=== PATIENT | male | born 1965 | race Caucasian/White ===

== ENCOUNTER 2019-06-28 04:52 | Emergency (ER) | payer BC ==
[~2019-06-28] VITALS: Ht 172.7 cm; Wt 81.7 kg
[~2019-06-28 04:52] MED LIST: CETI5 PO; CRUTCH2 USE; DOXY100 PO; EPIN.3I IM; HYDACE5; HYDACE5 PO; Multiple Vitam1 EAC1 PO; OTC ANTIHISTAMINE; OXYACE5T PO; PRED20 PO; Prozac20 MG PO
[2019-06-28 05:24] LABS: BASOPHILS ABSOLUTE AUTO 0.04 K/mm3 (0.00-0.23); BASOPHILS PERCENT AUTO 1 % (0-2); EOSINOPHILS ABSOLUTE AUTO 0.13 K/mm3 (0.00-0.68); EOSINOPHILS PERCENT AUTO 2 % (0-6); Hematocrit 43.6 % (37.0-53.0); Hemoglobin 14.8 g/dL (13.5-17.5); IMMATURE GRAN ABSOLUTE AUTO 0.02 K/mm3 (0.00-0.10); IMMATURE GRAN PERCENT AUTO 0 % (0-1); LYMPHOCYTES PERCENT AUTO 36 % (21-46); MONOCYTES ABSOLUTE AUTO 1.05 K/mm3 (0.16-1.47); MONOCYTES PERCENT AUTO 14 % (4-13); Mean Corpuscular HGB 30.2 pg (26.0-34.0); Mean Corpuscular HGB Conc 33.9 g/dL (31.5-36.5); Mean Corpuscular Volume 89 fL (80-100); Mean Platelet Volume 9.8 fL (9.1-12.4); NEUTROPHILS ABSOLUTE AUTO 3.49 K/mm3 (1.96-9.15); NEUTROPHILS PERCENT AUTO 48 % (41-73); Platelet Count 260 K/mm3 (150-400); RDW Coefficient Variation 12.3 % (11.7-14.2); RDW Standard Deviation 40.2 fL (35.1-46.3); White Blood Cell Count 7.33 K/mm3 (4.00-11.30)
[2019-06-28 05:43] LABS: Alanine Aminotransfer (ALT/SGP 70 U/L (12-78); Albumin, Blood 3.9 g/dL (3.4-5.0); Albumin/Globulin Ratio 1.1 (0.8-1.8); Alk Phos 77 U/L (50-136); Anion Gap 5 mmol/L (6-16); Aspartate Aminotrans (AST/SGOT 31 U/L (12-37); Bilirubin, Total 0.5 mg/dL (0.1-1.0); Blood Urea Nitrogen 21 mg/dL (8-24); Bun/Creatinine Ratio 24.2 (12.0-20.0); CO2, Blood 25 mmol/L (21-32); Calcium, Blood 8.7 mg/dL (8.5-10.1); Chloride, Blood 110 mmol/L (98-108); Creatinine, Blood 0.87 mg/dL (0.60-1.20); Globulin, Blood 3.6 g/dL (2.2-4.0); Glomerular Filtration Rate >60 (60-); Glucose, Blood 99 mg/dL (70-99); Potassium, Blood 3.8 mmol/L (3.5-5.5); Sodium, Blood 140 mmol/L (136-145); Total Protein, Blood 7.5 g/dL (6.4-8.2)
[2019-06-28] MEDS ORDERED: Percocet 5-3251 EACH PO (06:33)
[2019-06-28] MEDS ORDERED: ONDA4ODT SL (06:33)
[2019-06-28 06:51] LABS: Source, Urine Voided
[2019-06-28 06:54] LABS: Bilirubin, Urine Neg (Neg); Blood, Urine 5+ (Neg); Glucose Qualitative, Urine Neg (Neg); Ketones, Urine Neg (Neg); Leukocyte Esterase, Urine 1+ (Neg); Nitrite, Urine Neg (Neg); Protein, Urine 2+ (Neg); Specific Gravity, Urine 1.015 (1.003-1.022); Urobilinogen, Urine NORM (Normal)
[2019-06-28 07:01] LABS: Appearance, Urine Hazy (Clear); Color, Urine Yellow (P-Yellow)
[2019-06-28 07:03] LABS: Bacteria Rare /hpf; Red Blood Cells, Urine TNTC /hpf (0-2); Squamous Epithelial Cells Rare /hpf (Few)
[2019-06-28 07:04] LABS: Mucus Light (0-Heavy)
== END 2019-06-28 06:55 | disposition home or self-care (01) ==
LOC: ER 04:52
PROVIDERS: Emergency Medicine
DX: N13.2 Hydronephrosis with renal and ureteral calculous obstruction (principal); Z88.5 Allergy status to narcotic agent
CPT/HCPCS: 36415; 74176; 80053; 81001; 85025; 87086; 96374; 99284-25; J1885

== ENCOUNTER → 2020-06-09 | Outpatient (CLI) | payer BC ==
[~2020-06-09] MED LIST changes: +ONDA4ODT SL; +Percocet 5-3251 EACH PO
== END | disposition home or self-care (01) ==
LOC: LAB SHORT 15:45
DX: N39.0 Urinary tract infection, site not specified (principal)
CPT/HCPCS: 87086

== ENCOUNTER 2021-02-04 07:00 | Day surgery (SDC) | payer BC ==
[~2021-02-04] VITALS: Ht 172.7 cm; Wt 76.4 kg
--- NOTE | 2021-02-04 08:54 | NUR ---
02/04/21 0854 Tamiko Mahmood DISCUSSION WITH PATIENT THAT HE DRANK WATER AND HE ESTIMATES IT WAS PROBABLY AROUND 6:30 AM WHEN HE LAST DRANK. I EXPLAINED TO HIM THAT THIS IS AN ASPIRATION CONCERN AND ANSWERED HIS QUESTIONS.
== END 2021-02-04 09:55 | disposition home or self-care (01) ==
LOC: ORSCSDS 07:00
PROVIDERS: Internal Medicine Gastroenterology
PROC: 0DJD8ZZ Inspection of Lower Intestinal Tract, Via Natural or Artificial Opening Endoscopic (ICD-10-PCS; principal; 2021-02-04 08:30)
DX: Z12.11 Encounter for screening for malignant neoplasm of colon (principal); K64.8 Other hemorrhoids
CPT/HCPCS: J2704; J7120

== ENCOUNTER → 2021-03-26 | Outpatient (CLI) | payer BC | LOC: LAB 15:09 → LAB SHORT 15:09 | DX: L03.90 Cellulitis, unspecified (principal) | CPT/HCPCS: 87070; 87077; 87147; 87186 ==

== ENCOUNTER → 2022-01-12 | Outpatient (CLI) | payer BC | END | disposition home or self-care (01) | LOC: LAB SHORT 14:52 → PLD 14:52 | DX: L81.4 Other melanin hyperpigmentation (principal); D04.61 Carcinoma in situ of skin of right upper limb, including shoulder | CPT/HCPCS: 88305 ==

== ENCOUNTER → 2022-07-12 | Outpatient (CLI) | payer BC | END | disposition home or self-care (01) | LOC: LAB SHORT 11:19 → PLD 11:19 | DX: C44.519 Basal cell carcinoma of skin of other part of trunk (principal) | CPT/HCPCS: 88305 ==

== ENCOUNTER → 2022-08-10 | Outpatient (CLI) | payer BC | LOC: PLD 08:16 → LAB SHORT 08:16 | DX: C44.519 Basal cell carcinoma of skin of other part of trunk (principal) | CPT/HCPCS: 88305 ==

== ENCOUNTER → 2024-07-26 | Outpatient (CLI) | payer BC | LOC: LAB 18:20 → LAB SHORT 18:20 | DX: N39.0 Urinary tract infection, site not specified (principal); R35.0 Frequency of micturition; R30.0 Dysuria | CPT/HCPCS: 87086 ==